=== PATIENT | male | born 1990 | race Caucasian/White ===

== ENCOUNTER 2016-12-02 19:21 | Emergency (ER) | payer OTHER ==
[2016-12-02 19:41] VITALS: RESP 16
[2016-12-02] MEDS ORDERED: IBUPROFEN 200 MG TAB PO ONE ×2 (19:52→19:54)
--- NOTE | 2016-12-02 20:19 | DX ---
Right Knee, Four Views Clinical Indications: Pain following trauma. Findings: A fracture is not identified. The bone alignment is normal. The soft tissues are unremarka ble. Impression: Negative for fracture.
--- NOTE | 2016-12-02 20:48 | EDPHY ---
H & P Time Seen by Provider: 12/02/16 20:37 HPI/ROS: HPI: 26-year-old male presents to emergency department with chief concern right knee pain and swelling that occurred 1 hour prior to arrival when he was a goalie in a soccer game, ran forward planted his left foot and internally rotated his left knee was th left foot planted. [place] pop and heard pop. Had immediate significant pain to the lateral superior and medial aspect of the knee with moderate swelling. Unable to bear weight. Denies other injury at time of incident. Denies striking his head, neck pain, back pain, right hip, right leg, right ankle or foot pain. No weakness, numbness, or tingling of the right lower extremity. ROS:10 point review of systems is negative other than as stated in HPI Smoking Status: Never smoked Physical Exam: Vital signs stable, reviewed by me General: Awake, alert, calm, cooperative. No acute distress. Head: Normalocephalic. Atraumatic. EENT: PERRLA. EOMI. Neck: Supple, nontender. No midline tenderness, full ROM. Respiratory: Breathing unlabored. CV: Chest nontender, atraumatic. Distal pulses 2+. Brisk cap refill all extremities. GI: Deferred Neuro: Alert. Oriented x 3. Sensation intact all extremities. Skin: Skin warm, dry, intact. No ecchymosis, abrasions, or lacerations. Extremities: No discomfort to palpation of the right hip, leg, ankle or foot. Full ROM. There is exquisite discomfort to palpation of the lateral, superior, and medial aspect of the right knee. Moderate swelling. Unable to complete knee exam due to exquisite pain. Constitutional: Initial Vital Signs Temperature (C) 36.8 C 12/02/16 19:39 Heart Rate 74 12/02/16 19:39 Respiratory Rate 16 12/02/16 19:39 Blood Pressure 118/74 12/02/16 19:39 O2 Sat (%) 96 12/02/16 19:39 O2 Delivery Mode Room Air Allergies/Adverse Reactions: No Known Allergies Allergy (Unverified 12/02/16 19:38) Home Medications: Medication Instructions Recorded Hydrocodone/APAP 5/325 [[place] 1 - 2 tab PO Q6H PRN #14 tab 12/02/16 5/325 (*)] Ritalin 12/02/16 Medical Decision Making - Diagnostics Imaging: Right Knee, Four Views Clinical Indications: Pain following trauma. Findings: A fracture is not identified. The bone alignment is normal. The soft tissues are unremarkable. Impression: Negative for fracture. Dictated By: Yang Rodriges MD ED Course/Re-evaluation: Patient presents to emergency department with a injury of the right knee while playing soccer. I suspect a lateral collateral ligament injury versus meniscal tear. Placed in a knee immobilizer. Neurovascular status intact after application. Instructed in use of crutches. Referred Ortho. Differential Diagnosis: Differential diagnosis includes but is not limited to and in no particular order lateral collateral ligament tear, meniscal tear, dislocation, fracture - Data Points Medications Given: Discontinued Medications Ibuprofen (Motrin) 800 mg PO EDNOW ONE Stop: 12/02/16 19:55 Last Admin: 12/02/16 19:56 Dose: 800 mg Departure - Departure Disposition: Home, Routine, Self-Care Clinical Impression: Internal derangement of knee Qualifiers: Laterality: right Qualifier Code: (M23.91) Unspecified internal derangement of right knee Condition: Good Instructions: Knee Sprain (ED) Additional Instructions: Plan: You may use 600 mg of ibuprofen every 6 hours for fever, inflammation, or pain. Always take ibuprofen with food and stay well hydrated while taking. Do not exceed the maximum allowable dose in a 24 hour period which is 2400 mg. ice every 1-2 hours for 20 minutes for the the next 2-3 days Knee immobilizer with crutches while up and about, nonweightbearing Elevate while at rest Follow up with orthopedist listed in your paperwork Tuesday, Tuesday, or Tuesday without fail--When you call to schedule appointment, please let the office know you are an "ER follow up" appointment", okay to see anyone in the office-get 1st available appointment Referrals: [place],. [Primary Care Provider] - As per Instructions Alfred Lomeli MD [Medical Doctor] - As per Instructions Prescriptions: Hydrocodone/APAP 5/325 [[place] 5/325 (*)] 1 - 2 tab PO Q6H PRN #14 tab PRN Reason: Severe pain
[2016-12-02 21:22] VITALS: BP 109/78; PULSE 163; TEMP 97.7; O2SAT 94
== END 2016-12-02 21:14 | disposition home or self-care (01) ==
LOC: EDUNIT#
DX: M23.91 Unspecified internal derangement of right knee (principal)
CPT/HCPCS: L1830